=== PATIENT | female | born 2000 | race Caucasian/White ===

== ENCOUNTER 2025-11-14 07:27 | Emergency (ER) | payer OTHER, SELFPAY ==
[2025-11-14] VITALS (20 sets, daily range): BP systolic 96–134; BP diastolic 61–102; BMI 43.7
--- NOTE | 2025-11-14 07:50 | EDRN ---
Maggy BOLANOS in room w/ pt .
--- NOTE | 2025-11-14 07:52 | ED.GENMED ---
History of Present Illness
<Jose Alejandro Flores PA-C - Last Filed: 11/14/25 13:49>
General
Chief Complaint: Fall
Time Seen by Provider: 11/14/25 07:30
History of Present Illness
History of Present Illness:
25-year-old female presents to the emergency department for evaluation of left wrist pain after a fall. Slipped on the ice this morning, obvious deformity noted to the distal forearm/wrist. No distal paresthesias. Reports some pain to the elbow
but denies any shoulder pain. Denies head strike.
Review of Systems
<Jose Alejandro Flores PA-C - Last Filed: 11/14/25 13:49>
Review of Systems
Allergies reviewed?: Yes
All Other Systems: ROS reviewed and negative except as documented in HPI and ROS
Phy Exam
<Jose Alejandro Flores PA-C - Last Filed: 11/14/25 13:49>
Physical Exam
Physical Exam:
GEN: Well appearing, NAD, WDWN
HEENT: Oral mucosa moist, no scleral icterus
Cardiac: Regular rate
Lung: No respiratory distress, no tachypnea
MSK: Deformity to the left wrist, strong left radial pulse, neurovascularly intact distal to the injury. Mild tenderness elicited to the left elbow with no obvious deformity
Skin: Good color, no pallor or jaundice, no rashes
Neuro: AO x3, moves all extremities freely
Psych: Calm, cooperative
Course
<Jose Alejandro Flores PA-C - Last Filed: 11/14/25 13:49>
Orders/Labs/Results
Orders:
Orders
11/14/25 07:50
Fentanyl Citrate/Pf [Sublimaze] 75 mcg IV NOW STA
CR Elbow - Left Min 3 Views Urgent
Comment:
Reason For Exam: fall
CR Wrist - Left Min 3 Views Urgent
Comment:
Reason For Exam: fall
11/14/25 09:18
CR Wrist - Left Min 2 Views Urgent
Comment:
Reason For Exam: post reduction
11/14/25 09:40
Ketorolac [Toradol] 15 mg IV NOW STA
11/14/25 10:14
Propofol [Diprivan] 20 ml .ROUTE .STK-MED
11/14/25 10:43
CR Wrist - Left Min 2 Views Urgent
Comment:
Reason For Exam: post reduction of fracture w/ mod. sedation
11/14/25 10:46
Propofol [Diprivan] 20 ml .ROUTE .STK-MED
Vital Signs
Initial and Last Documented VS:
Initial Vital Signs
Temp Pulse Resp BP Pulse Ox
99 F 87 16 134/81 98
11/14/25 07:40 11/14/25 07:40 11/14/25 07:40 11/14/25 07:40 11/14/25 07:40
Last Documented Vital Signs
Temp Pulse Resp BP Pulse Ox
99 F 69 18 109/68 99
11/14/25 11:10 11/14/25 11:10 11/14/25 11:10 11/14/25 11:10 11/14/25 11:10
<Antonino Weller MD - Last Filed: 11/14/25 12:53>
Orders/Labs/Results
Orders:
Orders
11/14/25 07:50
Fentanyl Citrate/Pf [Sublimaze] 75 mcg IV NOW STA
CR Elbow - Left Min 3 Views Urgent
Comment:
Reason For Exam: fall
CR Wrist - Left Min 3 Views Urgent
Comment:
Reason For Exam: fall
11/14/25 09:18
CR Wrist - Left Min 2 Views Urgent
Comment:
Reason For Exam: post reduction
11/14/25 09:40
Ketorolac [Toradol] 15 mg IV NOW STA
11/14/25 10:14
Propofol [Diprivan] 20 ml .ROUTE .STK-MED
11/14/25 10:43
CR Wrist - Left Min 2 Views Urgent
Comment:
Reason For Exam: post reduction of fracture w/ mod. sedation
11/14/25 10:46
Propofol [Diprivan] 20 ml .ROUTE .STK-MED
Vital Signs
Initial and Last Documented VS:
Initial Vital Signs
Temp Pulse Resp BP Pulse Ox
99 F 87 16 134/81 98
11/14/25 07:40 11/14/25 07:40 11/14/25 07:40 11/14/25 07:40 11/14/25 07:40
Last Documented Vital Signs
Temp Pulse Resp BP Pulse Ox
99 F 69 18 109/68 99
11/14/25 11:10 11/14/25 11:10 11/14/25 11:10 11/14/25 11:10 11/14/25 11:10
Procedures
<Jose Alejandro Flores PA-C - Last Filed: 11/14/25 13:49>
Moderate Sedation
ASA Risk Score: Class I
Chart and allergies reviewed: Yes
Consent for anesthesia obtained: Yes
Time out completed (validating right patient & procedure): Yes
Moderate Sedation Start Time(when first medication is given): 10:36
History of difficult intubation: No
Airway free of obstruction: Yes
Patient has a gag reflex: Yes
Patient is able to open mouth: Yes
Patient has no dentures: Yes
Patient has no loose teeth: Yes
Medication administered by Provider during Moderate Sedation: IV Propofol (mg)
Total dose administered: 200
Time drug administered: 10:36
Moderate Sedation Procedure End Time: 10:46
Joint/Fracture Reduction
L wrist:
Indication for procedure:: Displaced distal radius fx
Procedure completed by: Jose Alejandro Flores Pa-c
Consent form signed: Yes
Joint reduced: with anesthesia sedation
Anesthesia/sedation: 1% Lidocaine and Other (hematoma block)
Injury was: closed
Further treatement: needs further treatment
Post reduction exam: stable
Capillary Refill: normal
<Jose Alejandro Flores PA-C - Last Filed: 11/14/25 13:49>
MDM/Problems Addressed
MDM/Problems Addressed:
After reduction attempt with hematoma block was unsuccessful the patient was then placed under conscious sedation for reduction, postreduction x-rays with significant improvement in anatomic alignment. Will follow-up as an outpatient with hand
surgery
<Jose Alejandro Flores PA-C - Last Filed: 11/14/25 13:49>
*Pulse Oximetry
SaO2: 98
Oxygen Mode of Delivery: Room air
Patient hypoxic: no
*Critical Care Note
Total Time (30-74mins, 75-104mins- exclusive of procedures): Not Applicable
ED Attending Note
<Jose Alejandro Flores PA-C - Last Filed: 11/14/25 13:49>
-
Portions of this chart may have been created with voice recognition software.� Occasional wrong word or��sound alike� substitutions may have occurred due to the inherent limitations of voice recognition software.
<Antonino Weller MD - Last Filed: 11/14/25 12:53>
ED Attending Note
Patient seen and examined by attending physician: Yes
ED Attending Note:
I have seen and evaluated the patient with a [id number] encounter. I have spoken to the advance practicer provider and involved in the medical history, the physical exam, medical decision making.
Evaluation and management service: agree unless noted differently below.
Results interpretation: agree unless noted differently below.
Focused HPI: 25-year-old female with history as noted presents for evaluation of a left wrist injury after a slip and fall on the ice. No head strike or any other injuries.
Physical exam: Awake and alert appears uncomfortable. Left wrist deformity noted with some dorsal angulation. Tender in the left wrist. Strong radial pulse noted. Motor and sensory intact distal left upper extremity.
Medical Decision Makin-year-old female presents after slip and fall on the ice. She has left wrist deformity but neurovascular intact no other injuries noted. X-ray shows distal radius fracture with dorsal angulation. Initial attempt by PA
for reduction using hematoma block in was unsuccessful. Proceeded with moderate sedation and reduction under sedation under my direct supervision with improved alignment of fracture on postreduction x-ray. Splint applied by PA. Monitor after
sedation, thereafter stable for discharge with outpatient orthopedic follow-up.
Discharge Plan
Departure
Patient Disposition: Home (Routine Discharge)
Date of Disposition: 11/14/25
Time of Disposition: 11:14
Patient with high blood pressure during this ER visit?: No
Discharge Problem:
Distal radius fracture, left
Instructions: Wrist Fracture (DC)
Referrals:
Renetta Mathew DO [Family Provider, Family Practice]
Hernesto España MD [Active, Orthopedics] - Call in 1-3 days for appt
Activity Restrictions/Additional Instructions:
Tylenol and Ibuprofen every 6 hours as needed for pain
Follow up with Orthopedics as soon as possible
Interventions
Interventions:
*Risk Screen - Suicide Last Done: 11/14/25 07:40
*General Assessment Last Done: 11/14/25 07:40
*Neglect/Abuse Screening Last Done: 11/14/25 07:40
*ED COVID-19 Vaccine History Last Done: 11/14/25 07:50
*ED Influenza Vaccine History Last Done: 11/14/25 07:50
[facility] Fall Risk Assessment Tool Last Done: 11/14/25 07:50
*Nursing Disposition Last Done: 11/14/25 11:40
ED-Musculoskeletal Assessment Last Done: 11/14/25 08:16
ED- Neurological Assessment Last Done: 11/14/25 08:16
ED-Skin Assessment Last Done: 11/14/25 08:16
Discharge Date and Time
Discharge Date/Time: 11/14/25 11:40
Print Language: TURKISH
[2025-11-14] MEDS: SUBLIMAZE 75 MCG IV (08:07)
--- NOTE | 2025-11-14 08:44 | EDRN ---
Maggy BOLANOS in room w/ pt
--- NOTE | 2025-11-14 09:20 | EDRN ---
Maggy BOLANOS reduced FX and casted L wrist at this time w/ help of Bruno COOK PCT.
[2025-11-14] MEDS: TORADOL 15 MG IV (09:48)
--- NOTE | 2025-11-14 10:34 | EDRN ---
Dr. Weller and Maggy Flores PA in room w/ pt at this time.
--- NOTE | 2025-11-14 10:44 | EDRN ---
xray called for portable.
--- NOTE | 2025-11-14 11:17 | EDRN ---
Maggy BOLANOS in room w/ pt. Pt is recovered and discharged at this time.
== END 2025-11-14 11:40 | disposition home or self-care (01) ==
LOC: EMR 07:27
PROVIDERS: EMERGENCY PHYSICIAN Emergency Medicine; FAMILY PHYSICIAN Family Medicine
DX: S52.592A Other fractures of lower end of left radius, initial encounter for closed fracture (principal); W00.0XXA Fall on same level due to ice and snow, initial encounter
CPT/HCPCS: 99152; 25605; 96374; 96375; 99285; 73080; 73100; 73110

== ENCOUNTER 2025-11-22 06:20 | Day surgery (SDC) | payer OTHER, SELFPAY ==
[2025-11-22] VITALS (8 sets, daily range): BP systolic 100–121; BP diastolic 52–89; BMI 43.3
[2025-11-22] MEDS: CELEBREX 200 MG PO (09:05)
[2025-11-22] MEDS: NORMOSOL-R/PLASMALYTE-A 1000 IV (09:06)
[2025-11-22] MEDS: TYLENOL 1000 MG PO (09:06)
[2025-11-22] MEDS: EMEND 40 MG PO (09:08)
== END 2025-11-22 12:52 | disposition home or self-care (01) ==
LOC: SDS 06:20
PROVIDERS: ATTENDING PHYSICIAN Orthopaedic Surgery Hand Surgery
DX: S52.552A Other extraarticular fracture of lower end of left radius, initial encounter for closed fracture (principal); X58.XXXA Exposure to other specified factors, initial encounter
CPT/HCPCS: 25607; C1713